=== PATIENT | female | born 1970 | race Caucasian/White ===

== ENCOUNTER → 2016-06-21 | Outpatient (CLI) | payer OTHER ==
[~2016-06-21] MED LIST: /ONDA4TA OR; AMIT10TA2 OR; COMBVENT INH; DEPA250T3 OR; DEPA500T OR; MAXA10TA17 OR; NICO14DI3 TD; PERC5TAB8 OR; PHEN 25 PO; ZITH250T OR
--- NOTE | 2016-06-21 08:37 | REP ---
MRI CERVICAL SPINE WITHOUT CONTRAST: HISTORY: Neck pain. COMPARISON: 03/03/2013. A disc bulge is present at the C2-3 level. There is minimal effacement of the thecal sac without spinal cord compression. The C2 neural foramina are patent. A disc bulge is present at the C3-4 level. There is minimal effacement of the thecal sac without spinal cord compression. The C3 neural foramina are patent. A disc bulge with associated osteophyte formation is present at the C4-5 level. There is minimal effacement of the thecal sac without spinal cord compression. Uncinate process hypertrophy is present on the right. This produces minimal narrowing of the right C4 neural foramen. The left C4 neural foramen is patent. The patient is status post C5-6 anterior spinal fusion. A fixation plate and bone graft material are present. There is no disc bulge or herniation at this level. The C5 neural foramina are patent. A disc bulge is present at the C6-7 level. There is minimal effacement of the thecal sac without spinal cord compression. Bilateral uncinate process hypertrophy is present. This produces minimal narrowing of the C6 neural foramina. There is no other disc bulge or herniation. The remaining neural foramina are patent. The spinal cord is normal in signal intensity. There is no intradural extramedullary lesion. Normal signal intensity is present in the cervical vertebral bodies. There is no subluxation. IMPRESSION: 1. The patient is status post C5-6 anterior spinal fusion. There is anatomic alignment of the cervical spine. 2. There is cervical spondylosis at the C2-3 through C4-5 and C6-7 levels without spinal cord compression. The disc bulge and osteophyte formation at the C4-5 level and foraminal narrowing at the C6-7 level are new findings. Signed by Frank Best MD 06/21/2016 09:11 A
--- NOTE | 2016-06-21 08:41 | REP ---
MRI LUMBAR SPINE WITHOUT CONTRAST: HISTORY: Back pain. COMPARISON: 01/03/2013. Decreased signal intensity on T2-weighted images is present in the L4-5 and L5-S1 intervertebral discs. The discs are decreased in height. These findings are consistent with disc degeneration. There is no disc bulge or herniation at the L1-2 and L2-3 levels. The nerves exit the neural foramina without compression. A diffuse disc bulge is present at the L3-4 level. There is minimal compression of the thecal sac. The L3 nerves exit the neural foramina without compression. A diffuse disc bulge is present at the L4-5 level. There is minimal compression of the thecal sac. The L4 nerves exit the neural foramina without compression. A diffuse disc bulge and small central disc protrusion are present at the L5-S1 level. The disc bulge abuts the S1 nerves. There is no thecal sac compression. The L5 nerves exit the neural foramina without compression. A 4 mm cyst is present lateral to the right L5-S1 facet joint. The conus medullaris is normal in appearance terminating at the level of the T12-L1 intervertebral disc. Normal signal intensity is present in the lumbar vertebral bodies. IMPRESSION: 1. Diffuse disc bulges at the L3-4 and L4-5 levels with minimal thecal sac compression. 2. Diffuse disc bulge and small central disc protrusion at the L5-S1 level. The disc bulge abuts the S1 nerves. There is no change compared to the previous study. Signed by Frank Best MD 06/21/2016 09:10 A
== END ==
LOC: M RAD 06:39
PROVIDERS: ATTEND Physician Assistant Medical
DX: M54.2 Cervicalgia (principal); M54.5 Low back pain; M43.22 Fusion of spine, cervical region; M43.02 Spondylolysis, cervical region

== ENCOUNTER → 2016-06-29 | Outpatient (CLI) | payer OTHER ==
[2016-06-29 10:30] LABS: BASO % 0.8 % (0.0-1.0); EOS # 0.1 K/mm3 (0.0-0.50); EOS % 1.1 % (0.0-3.0); LYMPH # 1.7 K/mm3 (1.5-4.5); LYMPH % 27.8 % (24.0-44.0); MEAN CORPUSCULAR HEMOGLOBIN 32.7 pg (27.0-33.0); MEAN CORPUSCULAR HGB CONC 33.6 g/dl (32.0-36.5); MEAN CORPUSCULAR VOLUME 97.3 fl (80.0-96.0); MONO # 0.3 K/mm3 (0.0-0.8); MONO % 4.2 % (0.0-5.0); NEUTROPHILS # 3.8 K/mm3 (1.8-7.7); NEUTROPHILS % 63.6 % (36.0-66.0); RED CELL DISTRIBUTION WIDTH 12.6 % (11.5-14.5)
[2016-06-29 10:54] LABS: ALBUMIN 4.1 GM/DL (3.2-5.2); ALBUMIN/GLOBULIN RATIO 1.32 (1.00-1.93); ALKALINE PHOSPHATASE 97 U/L (45-117); ALT/SGPT 17 U/L (12-78); ANION GAP 8 MEQ/L (8-16); AST/SGOT 13 U/L (15-37); BILIRUBIN,TOTAL 0.3 MG/DL (0.2-1.0); BLOOD UREA NITROGEN 11 MG/DL (7-18); CALCIUM LEVEL 9.2 MG/DL (8.5-10.1); CARBON DIOXIDE LEVEL 27 MEQ/L (21-32); CHLORIDE LEVEL 106 MEQ/L (98-107); CHOLESTEROL LEVEL 236 MG/DL (<200); CREATININE FOR GFR 0.71 MG/DL (0.55-1.02); GLOMERULAR FILTRATION RATE > 60.0 (>58); GLUCOSE, FASTING 90 MG/DL (70-105); POTASSIUM SERUM 4.3 MEQ/L (3.5-5.1); SODIUM LEVEL 141 MEQ/L (136-145); TOTAL PROTEIN 7.2 GM/DL (6.4-8.2); TRIGLYCERIDES LEVEL 69 MG/DL (<150)
== END ==
LOC: M LAB 09:50
PROVIDERS: ATTEND Physician Assistant Medical
DX: I10 Essential (primary) hypertension (principal)

== ENCOUNTER → 2016-06-29 | Outpatient (CLI) | payer OTHER | LOC: M LAB 09:51 | PROVIDERS: ATTEND Physician Assistant Medical | DX: E55.9 Vitamin D deficiency, unspecified (principal) ==

== ENCOUNTER → 2016-07-26 | Outpatient (CLI) | payer OTHER ==
--- NOTE | 2016-07-26 13:02 | REPMRS ---
Patient History The patient states she had a clinical breast exam in July 2016.Family history of breast cancer in mother and breast cancer in maternal grandmother. Digital Mammo Screening Bilat: July 26, 2016 - Exam #: [id number] Bilateral CC and MLO view(s) were taken. Technologist: Leena Neumann, Technologist Prior study comparison: December 13, 2014, bilateral digital mammo screening bilat performed at [facility]. FINDINGS: There are scattered fibroglandular densities. There has been no change in the appearance of the mammogram from the prior studies. There is a mild amount of scattered fibroglandular density which is fairly symmetric. There is no interval development of dominant mass, architectural distortion, or clustered microcalcification suggestive of malignancy. ASSESSMENT: BI-RADS/ACR category 1 mammogram. Negative. Recommendation Routine screening mammogram in 1 year (for women over age 40). This mammogram was interpreted with the aid of an FDA-approved computer-aided dectection system. Electronically Signed By: Piero Kuhn MD 07/26/16 [id number]
== END ==
LOC: M RAD 08:47
PROVIDERS: ATTEND Advanced Practice Midwife
DX: Z12.31 Encounter for screening mammogram for malignant neoplasm of breast (principal); Z80.3 Family history of malignant neoplasm of breast

== ENCOUNTER → 2016-09-17 | Outpatient (CLI) | payer OTHER ==
[2016-09-17 12:17] LABS: ALBUMIN 3.8 GM/DL (3.2-5.2); ALBUMIN/GLOBULIN RATIO 1.15 (1.00-1.93); ALKALINE PHOSPHATASE 83 U/L (45-117); ALT/SGPT 21 U/L (12-78); ANION GAP 6 MEQ/L (8-16); AST/SGOT 18 U/L (15-37); BILIRUBIN,TOTAL 0.4 MG/DL (0.2-1.0); BLOOD UREA NITROGEN 18 MG/DL (7-18); CALCIUM LEVEL 9.1 MG/DL (8.5-10.1); CARBON DIOXIDE LEVEL 30 MEQ/L (21-32); CHLORIDE LEVEL 106 MEQ/L (98-107); CHOLESTEROL LEVEL 280 MG/DL (<200); CREATININE FOR GFR 0.75 MG/DL (0.55-1.02); GLOMERULAR FILTRATION RATE > 60.0 (>58); GLUCOSE, FASTING 75 MG/DL (70-105); POTASSIUM SERUM 4.3 MEQ/L (3.5-5.1); SODIUM LEVEL 142 MEQ/L (136-145); TOTAL PROTEIN 7.1 GM/DL (6.4-8.2); TRIGLYCERIDES LEVEL 144 MG/DL (<150)
== END ==
LOC: M LAB 10:12
PROVIDERS: ATTEND Physician Assistant Medical
DX: E78.2 Mixed hyperlipidemia (principal); E55.9 Vitamin D deficiency, unspecified

== ENCOUNTER → 2016-09-17 | Outpatient (CLI) | payer OTHER ==
--- NOTE | 2016-09-18 01:33 | REP ---
Clinical: Cervical spondylosis. Technique: AP, lateral, flexion/extension, open-mouth, bilateral oblique views of the cervical spine. Findings: Anterior fixation at the C5-6 level again noted. Mild/early moderate degenerative disc osteophyte complex at the C3-4, C4-5, C6-7 levels includes anterior spurring, endplate sclerosis and disc space narrowing. Flexion view suggests 2 mm of retrolisthesis at the C4-5 level. Spinous processes are intact. Open mouth view demonstrates normal C1-C2 articulation and odontoid process. Prevertebral soft tissues normal. Oblique views demonstrate patent neural foramen. Impression: Degenerative changes as noted above. 2 mm retrolisthesis at the C4-5 level on flexion view suggested. Signed by Pavan Page MD 09/18/2016 01:24 A
--- NOTE | 2016-09-18 01:45 | REP ---
Clinical: Spondylosis. Technique: AP, lateral, flexion/extension, bilateral oblique, and coned-down views of the lumbosacral spine. Comparison: 12/10/2006. Findings: Alignment and lordosis maintained. No acute fracture / compression injury or subluxation. No evidence for spondylolysis or spondylolisthesis. Stable degenerative disc disease at the L5-S1 level includes endplate sclerosis, very subtle anterior spurring and mild hypertrophic facet changes. Impression: Stable early moderate degenerative changes at the L5-S1 level. Signed by Pavan Page MD 09/18/2016 01:36 A
== END ==
LOC: M RAD 10:17
PROVIDERS: ATTEND Neurological Surgery
DX: M47.892 Other spondylosis, cervical region (principal); M47.896 Other spondylosis, lumbar region

== ENCOUNTER → 2016-12-04 | Outpatient (CLI) | payer OTHER ==
[2016-12-04 11:40] LABS: CHOLESTEROL LEVEL 226 MG/DL (<200); TOTAL PROTEIN 6.9 GM/DL (6.4-8.2); TRIGLYCERIDES LEVEL 93 MG/DL (<150)
[2016-12-05 11:07] LABS: ALBUMIN 4.15 GM/DL (3.29-5.55); ALBUMIN % 60.2 % (55.8-66.1); GAMMA GLOBULIN % 11.8 % (11.1-18.8)
[2016-12-06 00:07] LABS: Lyme Disease IgG/IgM Antibodie <0.91 ISR (0.00-0.90); Lyme Disease IgM Ab Quantitati <0.80 index (0.00-0.79); SJOGREN'S ANTI SS-A <0.2 AI (0.0-0.9); SJOGREN'S ANTI SS-B <0.2 AI (0.0-0.9)
== END ==
LOC: M LAB 10:19
PROVIDERS: ATTEND Physician Assistant Medical
DX: E78.2 Mixed hyperlipidemia (principal); E55.9 Vitamin D deficiency, unspecified; M54.5 Low back pain

== ENCOUNTER → 2017-03-28 | Outpatient (CLI) | payer OTHER ==
[2017-03-28 08:34] LABS: BASO # 0.1 10^3/uL (0.0-0.2); BASO % 0.8 % (0.0-1.0); EOS # 0.1 10^3/uL (0.0-0.50); EOS % 1.6 % (0.0-3.0); IMMATURE GRANULOCYTE % 0.5 % (0-0); LYMPH # 2.1 10^3/uL (1.5-4.5); LYMPH % 32.9 % (24.0-44.0); MEAN CORPUSCULAR HEMOGLOBIN 32.1 pg (27.0-33.0); MEAN CORPUSCULAR HGB CONC 33.1 g/dl (32.0-36.5); MEAN CORPUSCULAR VOLUME 96.9 fl (80.0-96.0); MONO # 0.3 10^3/uL (0.0-0.8); NEUTROPHILS # 3.7 10^3/uL (1.8-7.7); NEUTROPHILS % 59.2 % (36.0-66.0); PLATELET COUNT, AUTOMATED 304 10^3/uL (150-450); RED CELL DISTRIBUTION WIDTH 12.8 % (11.5-14.5); WHITE BLOOD COUNT 6.2 10^3/uL (4.0-10.0)
[2017-03-28 08:54] LABS: INR 0.87
[2017-03-28 09:12] LABS: ALBUMIN 3.8 GM/DL (3.2-5.2); ALBUMIN/GLOBULIN RATIO 1.15 (1.00-1.93); ALKALINE PHOSPHATASE 79 U/L (45-117); ALT/SGPT 32 U/L (12-78); ANION GAP 3 MEQ/L (8-16); AST/SGOT 20 U/L (7-37); BILIRUBIN,TOTAL 0.3 MG/DL (0.2-1.0); BLOOD UREA NITROGEN 23 MG/DL (7-18); CALCIUM LEVEL 9.3 MG/DL (8.5-10.1); CARBON DIOXIDE LEVEL 30 MEQ/L (21-32); CHLORIDE LEVEL 109 MEQ/L (98-107); CHOLESTEROL LEVEL 321 MG/DL (<200); CREATININE FOR GFR 0.71 MG/DL (0.55-1.02); FERRITIN 136 NG/ML (8-252); GLOMERULAR FILTRATION RATE > 60.0 (>58); GLUCOSE, FASTING 86 MG/DL (70-105); POTASSIUM SERUM 4.4 MEQ/L (3.5-5.1); SODIUM LEVEL 142 MEQ/L (136-145); TOTAL PROTEIN 7.1 GM/DL (6.4-8.2); TRIGLYCERIDES LEVEL 98 MG/DL (<150)
== END ==
LOC: M LAB 07:54
PROVIDERS: ATTEND Physician Assistant Medical
DX: R70.0 Elevated erythrocyte sedimentation rate (principal)

== ENCOUNTER → 2017-04-16 | Outpatient (CLI) | payer OTHER ==
--- NOTE | 2017-04-17 08:25 | REP ---
LIMITED EXTREMITY ULTRASOUND: CLINICAL: Palpable mass, evaluate for neuroma. TECHNIQUE: Real-time holt scale and color evaluation using linear high frequency transducer. FINDINGS: Directed ultrasound examination of the left foot between the first and second as well as the second and third toes demonstrates normal subcutaneous tissues and musculature. No obvious fluid collection or mass lesion is identified. IMPRESSION: Limited examination without evidence for abnormal fluid collection or mass lesion. Signed by Pavan Page MD 04/21/2017 11:22 P
== END ==
LOC: M RAD 13:01
PROVIDERS: ATTEND Podiatrist Foot & Ankle Surgery
DX: G57.60 Lesion of plantar nerve, unspecified lower limb (principal)

== ENCOUNTER → 2017-04-22 | Outpatient (CLI) | payer OTHER ==
[~2017-04-22] MED LIST changes: +PROHANCE 279.3MG/ML 15ML VIAL (A9576) As Ordered ONE
--- NOTE | 2017-04-22 16:44 | REP ---
MRI LEFT FOOT WITH AND WITHOUT CONTRAST: TECHNIQUE: Multiple sequences obtained in the axial, coronal and saggital planes prior to and following the intravenous administration of 11 mL of ProHance. The visualized osseous structures demonstrate normal marrow signal. There is no bone marrow edema or occult fracture. There is ill-defined high signal in the soft-tissues between the distal 2nd and 3rd metatarsals. No cystic or solid nodule is seen. There is no enhancing nodule that would suggest the presence of a Lucas neuroma. The ill-defied edema appears to be associated with distal lumbrical muscles and tendons in the interspace between the 2nd and 3rd metatarsals distally, most suggestive of tendonitis or partial muscle/tendon tear. No other significant abnormal signal is seen in the soft tissues of the left foot. No ganglion cyst of fluid collection is seen. IMPRESSION: Mild edema in the region of the lumbrical muscles between the distal aspects of second and third metatarsals, most consistent with tendonitis or partial tear. No MR evidence for Lucas neuroma, with no evidence of an enhancing soft-tissue nodule in this region. Signed by Norman Chakraborty MD 04/24/2017 08:59 A
== END ==
LOC: M RAD 13:05
PROVIDERS: ATTEND Podiatrist Foot & Ankle Surgery
DX: G57.62 Lesion of plantar nerve, left lower limb (principal)
CPT/HCPCS: 73720; A9576

== ENCOUNTER → 2017-05-29 | Outpatient (CLI) | payer OTHER ==
[2017-05-29 07:45] LABS: HEMATOCRIT 39.6 % (36.0-47.0); HEMOGLOBIN 13.4 g/dl (12.0-16.0); MEAN CORPUSCULAR HEMOGLOBIN 32.3 pg (27.0-33.0); MEAN CORPUSCULAR HGB CONC 33.8 g/dl (32.0-36.5); MEAN CORPUSCULAR VOLUME 95.4 fl (80.0-96.0); PLATELET COUNT, AUTOMATED 301 10^3/uL (150-450); RED BLOOD COUNT 4.15 10^6/uL (4.00-5.40); RED CELL DISTRIBUTION WIDTH 12.2 % (11.5-14.5); WHITE BLOOD COUNT 8.7 10^3/uL (4.0-10.0)
[2017-05-29 08:21] LABS: ANION GAP 4 MEQ/L (8-16); BLOOD UREA NITROGEN 30 MG/DL (7-18); CARBON DIOXIDE LEVEL 27 MEQ/L (21-32); CHLORIDE LEVEL 112 MEQ/L (98-107); CREATININE FOR GFR 0.69 MG/DL (0.55-1.02); GLOMERULAR FILTRATION RATE > 60.0 (>58); GLUCOSE, FASTING 92 MG/DL (70-105); POTASSIUM SERUM 4.4 MEQ/L (3.5-5.1); SODIUM LEVEL 143 MEQ/L (136-145)
== END ==
LOC: M LAB 07:00
DX: Z01.812 Encounter for preprocedural laboratory examination (principal)
CPT/HCPCS: 36415

== ENCOUNTER → 2017-05-29 | Outpatient (CLI) | payer OTHER ==
[2017-05-29 07:46] LABS: BASO % 0.4 % (0.0-1.0); EOS # 0.1 10^3/uL (0.0-0.50); HEMATOCRIT 40.4 % (36.0-47.0); HEMOGLOBIN 13.4 g/dl (12.0-16.0); IMMATURE GRANULOCYTE % 0.4 % (0-0); LYMPH % 24.5 % (24.0-44.0); MEAN CORPUSCULAR HEMOGLOBIN 32.1 pg (27.0-33.0); MEAN CORPUSCULAR HGB CONC 33.2 g/dl (32.0-36.5); MEAN CORPUSCULAR VOLUME 96.7 fl (80.0-96.0); MONO # 0.4 10^3/uL (0.0-0.8); MONO % 4.8 % (0.0-5.0); NEUTROPHILS # 5.7 10^3/uL (1.8-7.7); NEUTROPHILS % 68.9 % (36.0-66.0); PLATELET COUNT, AUTOMATED 296 10^3/uL (150-450); RED BLOOD COUNT 4.18 10^6/uL (4.00-5.40); RED CELL DISTRIBUTION WIDTH 12.1 % (11.5-14.5); WHITE BLOOD COUNT 8.3 10^3/uL (4.0-10.0)
[2017-05-29 08:22] LABS: RHEUMATOID FACTOR QUANT < 10.0 IU/ML (0-15.0)
[2017-05-29 08:38] LABS: ERYTHROCYTE SEDIMENTATION RATE 21 mm/hr (0-20)
[2017-05-29 08:49] LABS: VITAMIN B12 LEVEL 536 PG/ML
[2017-05-29 08:50] LABS: FOLATE 6.9 NG/ML
[2017-05-30 14:11] LABS: ANTINUCLEAR ANTIBODIES DIRECT Negative (Negative)
[2017-06-05 10:55] LABS: DRVV SCREEN 40.1 SEC
== END ==
LOC: M LAB 07:06
DX: R51 Headache (principal); M54.2 Cervicalgia; M54.5 Low back pain; R20.9 Unspecified disturbances of skin sensation
CPT/HCPCS: 82746

== ENCOUNTER → 2017-05-29 | Outpatient (CLI) | payer OTHER ==
[2017-05-29 08:44] LABS: ALBUMIN 3.8 GM/DL (3.2-5.2); ALBUMIN/GLOBULIN RATIO 1.15 (1.00-1.93); ALKALINE PHOSPHATASE 94 U/L (45-117); ALT/SGPT 29 U/L (12-78); ANION GAP 5 MEQ/L (8-16); AST/SGOT 19 U/L (7-37); BILIRUBIN,TOTAL 0.2 MG/DL (0.2-1.0); BLOOD UREA NITROGEN 30 MG/DL (7-18); CALCIUM LEVEL 8.9 MG/DL (8.5-10.1); CARBON DIOXIDE LEVEL 27 MEQ/L (21-32); CHLORIDE LEVEL 111 MEQ/L (98-107); CHOLESTEROL LEVEL 289 MG/DL (<200); CHOLESTEROL RISK RATIO 4.378 (<5); CREATININE FOR GFR 0.75 MG/DL (0.55-1.02); GLOMERULAR FILTRATION RATE > 60.0 (>58); GLUCOSE, FASTING 94 MG/DL (70-105); HDL CHOLESTEROL 66 MG/DL (>40); LDL CHOLESTEROL 204.6 MG/DL (<100); NON-HDL-C 223 MG/DL; POTASSIUM SERUM 4.4 MEQ/L (3.5-5.1); SODIUM LEVEL 143 MEQ/L (136-145); TOTAL PROTEIN 7.1 GM/DL (6.4-8.2); TRIGLYCERIDES LEVEL 92 MG/DL (<150)
== END ==
LOC: M LAB 07:03
DX: E78.2 Mixed hyperlipidemia (principal)
CPT/HCPCS: 80053

== ENCOUNTER 2017-06-19 07:27 | Day surgery (SDC) | payer OTHER ==
[2017-06-19] MEDS: LR 1,000 ML IV (07:45)
[2017-06-19] MEDS ORDERED: MIDAZOLAM INJ 2 MG/2 ML VIAL (J2250) As Ordered (08:09)
[2017-06-19] MEDS ORDERED: fentaNYL 100 MCG/2 ML INJECTION (J3010) As Ordered (08:10)
[2017-06-19] MEDS ORDERED: dexameTHASONE 4 MG/ML 1ML VIAL (J1100) As Ordered ×2 (08:20→08:52)
[2017-06-19] MEDS ORDERED: LIDOCAINE 1% MDV 20ML VIAL As Ordered (08:31)
[2017-06-19] MEDS: LIDOCAINE 2% MDV 20 ML VIAL As Ordered (08:42)
[2017-06-19] MEDS: BUPIVACAINE HCL 0.5% 10 ML VIAL As Ordered (08:42)
[2017-06-19] MEDS ORDERED: PROPOFOL 200 MG/20 ML VIAL As Ordered (08:51)
[2017-06-19] MEDS ORDERED: LIDOCAINE 2% INJ 100 MG/5 ML SDV (FOR ANES.) As Ordered (08:51)
[2017-06-19] MEDS ORDERED: ONDANSETRON 4MG/2ML VIAL (J2405) As Ordered ×2 (08:52→09:25)
[2017-06-19] MEDS ORDERED: KETOROLAC 60 MG/2 ML VIAL (J1885) As Ordered (08:52)
[2017-06-19] MEDS: ONDANSETRON 4MG/2ML VIAL (J2405) IV (09:30)
[2017-06-19] MEDS ORDERED: fentaNYL 100 MCG/2 ML INJECTION (J3010) IV (09:45)
[2017-06-19] MEDS ORDERED: NORCO, ANEXSIA 5/325MG TABLET (HYDROcodone/ACETAMINOPHEN) PO (09:45)
[2017-06-19] MEDS ORDERED: LR 1,000 ML IV (09:45)
[2017-06-19] MEDS: METOCLOPRAMIDE INJ 10MG/2ML VIAL (J2765) IV (09:50)
== END 2017-06-19 11:00 | disposition home or self-care (01) ==
LOC: M SDC 07:27
DX: G57.62 Lesion of plantar nerve, left lower limb (principal); I10 Essential (primary) hypertension; E78.00 Pure hypercholesterolemia, unspecified; K21.9 Gastro-esophageal reflux disease without esophagitis; M54.2 Cervicalgia; M79.7 Fibromyalgia; M21.612 Bunion of left foot; F41.9 Anxiety disorder, unspecified; F32.9 Major depressive disorder, single episode, unspecified; G43.909 Migraine, unspecified, not intractable, without status migrainosus; J30.9 Allergic rhinitis, unspecified; Z88.5 Allergy status to narcotic agent; Z88.6 Allergy status to analgesic agent; Z79.899 Other long term (current) drug therapy; Z72.0 Tobacco use; Z90.710 Acquired absence of both cervix and uterus; Z86.73 Personal history of transient ischemic attack (TIA), and cerebral infarction without residual deficits; Z98.1 Arthrodesis status
CPT/HCPCS: 28080

== ENCOUNTER 2017-08-28 20:29 | Emergency (ER) | payer MEDICARE, MEDICAID ==
[2017-08-28] MEDS: DOXYCYCLINE HYCLATE 100 MG TAB PO (22:45)
[2017-08-28] MEDS: predniSONE 20 MG TAB PO (22:45)
[2017-08-28] MEDS ORDERED: ALBUTEROL SULFATE 2.5 MG/0.5 ML INH NEB SOLN INH (22:45)
== END 2017-08-28 23:34 | disposition home or self-care (01) ==
LOC: M ED 20:29
DX: J20.9 Acute bronchitis, unspecified (principal); I10 Essential (primary) hypertension; E78.5 Hyperlipidemia, unspecified; F17.210 Nicotine dependence, cigarettes, uncomplicated; Z88.5 Allergy status to narcotic agent; Z88.6 Allergy status to analgesic agent; Z79.899 Other long term (current) drug therapy
CPT/HCPCS: 71046

== ENCOUNTER → 2017-10-15 | Outpatient (CLI) | payer MEDICARE, MEDICAID ==
[2017-10-15 07:18] LABS: BASO # 0.1 10^3/uL (0.0-0.2); BASO % 0.6 % (0.0-1.0); EOS # 0.1 10^3/uL (0.0-0.50); EOS % 1.6 % (0.0-3.0); HEMATOCRIT 38.9 % (36.0-47.0); HEMOGLOBIN 13.2 g/dl (12.0-15.5); IMMATURE GRANULOCYTE % 0.3 % (0-3.0); LYMPH # 2.7 10^3/uL (1.5-4.5); LYMPH % 30.4 % (24.0-44.0); MEAN CORPUSCULAR HEMOGLOBIN 32.4 pg (27.0-33.0); MEAN CORPUSCULAR HGB CONC 33.9 g/dl (32.0-36.5); MEAN CORPUSCULAR VOLUME 95.6 fl (80.0-96.0); MONO # 0.5 10^3/uL (0.0-0.8); MONO % 5.5 % (0.0-5.0); NEUTROPHILS # 5.5 10^3/uL (1.8-7.7); NEUTROPHILS % 61.6 % (36.0-66.0); PLATELET COUNT, AUTOMATED 307 10^3/uL (150-450); RED BLOOD COUNT 4.07 10^6/uL (4.00-5.40); RED CELL DISTRIBUTION WIDTH 13.1 % (11.5-14.5); WHITE BLOOD COUNT 8.9 10^3/uL (4.0-10.0)
[2017-10-15 07:46] LABS: ERYTHROCYTE SEDIMENTATION RATE 18 mm/hr (0-20)
[2017-10-15 07:48] LABS: ALBUMIN 3.4 GM/DL (3.2-5.2); ALKALINE PHOSPHATASE 106 U/L (45-117); ALT/SGPT 21 U/L (12-78); ANION GAP 6 MEQ/L (8-16); AST/SGOT 17 U/L (7-37); BILIRUBIN,TOTAL 0.2 MG/DL (0.2-1.0); BLOOD UREA NITROGEN 12 MG/DL (7-18); C REACTIVE PROTEIN QUANTITATIV < 0.30 MG/DL (0.00-0.30); CALCIUM LEVEL 8.6 MG/DL (8.5-10.1); CARBON DIOXIDE LEVEL 27 MEQ/L (21-32); CHLORIDE LEVEL 112 MEQ/L (98-107); COMPLEMENT C3 129 MG/DL (90-180); COMPLEMENT C4 30.7 MG/DL (10-40); CREATININE FOR GFR 0.81 MG/DL (0.55-1.30); GLOMERULAR FILTRATION RATE > 60.0 (>58); GLUCOSE, FASTING 95 MG/DL (70-100); POTASSIUM SERUM 3.9 MEQ/L (3.5-5.1); SODIUM LEVEL 145 MEQ/L (136-145); TOTAL PROTEIN 6.5 GM/DL (6.4-8.2)
[2017-10-18 00:07] LABS: QUANTIFERON GOLD TB Negative (Negative); TB Test (QFT) Antigen 0.37 IU/mL (.); TB Test (QFT) Antigen Minus Ni 0.32 IU/mL (.); TB Test (QFT) Mitogen 6.68 IU/mL (.); TB Test (QFT) Nil 0.05 IU/mL (.)
[2017-10-21 14:12] LABS: ANCA-ATYPICAL <1:20 titer (Neg:<1:20); ANGIOTENSIN 1 CONVERTING ENZYM 26 U/L (14-82); ANTI DOUBLE STRAND-DNA AB <1 IU/mL (0-9); ANTI-SMOOTH MUSCLE ANTIBODY 8 Units (0-19); CYCLIC CITRULLINATED PEPTIDE 5 units (0-19); CYTOPLASMIC NEUTROP AB ANCA-C <1:20 titer (Neg:<1:20); HLA-B27 Negative (.); PERINUCLEAR AB ANCA-P <1:20 titer (Neg:<1:20); RNP ANTIBODY < 0.2 AI (0.0-0.9); SMITHS ANTIBODY < 0.2 AI (0.0-0.9); SSA SJOGRENS A <0.2 AI (0.0-0.9); SSB SJOGRENS B <0.2 AI (0.0-0.9)
== END ==
LOC: M LAB 06:34
DX: M25.50 Pain in unspecified joint (principal)
CPT/HCPCS: 71046

== ENCOUNTER → 2017-10-28 | Outpatient (CLI) | payer MEDICARE, MEDICAID | LOC: M CARPUL 12:11 | DX: M25.50 Pain in unspecified joint (principal) | CPT/HCPCS: 94060 ==

== ENCOUNTER → 2018-02-23 | Outpatient (CLI) | payer MEDICARE, MEDICAID | LOC: M LAB 15:38 | DX: M99.81 Other biomechanical lesions of cervical region (principal) | CPT/HCPCS: 72040 ==

== ENCOUNTER → 2018-04-27 | Outpatient (CLI) | payer MEDICARE, MEDICAID ==
[~2018-04-27] MED LIST changes: +AMLO10TA4; +ATOR40TA75; +BUSP15TA47; +CYMB60CA3 PO; +DOXY100T16 PO; +EZET10TA PO; +GABA600T; +HYDR-3713; +HYDR-3713 PO; +IBUP-1022; +LISI-538; +NICODIS2 TD; +PRAM0.5T7 PO; +PRED20TA PO; -PROHANCE 279.3MG/ML 15ML VIAL (A9576) As Ordered ONE; +ROPI2TAB; +SERT-138; +SUMA6INJ16; +TIZA2TA; +VITA50005; +ZOCO40TA PO
--- NOTE | 2018-04-27 12:31 | REP ---
REASON: Status post fusion. COMPARISON: 02/23/2018. AP and lateral views were obtained as on the prior exam. Postoperative change is seen C4-C6 inclusive status quo. No change in the appearance of the cervical spine on this limited two-view exam. IMPRESSION: No change. Electronically Signed by Robin Walters DO 04/27/2018 12:26 P
== END ==
LOC: M RAD 10:44
PROVIDERS: ATTEND Neurological Surgery
DX: M47.22 Other spondylosis with radiculopathy, cervical region (principal)

== ENCOUNTER → 2018-04-27 | Outpatient (CLI) | payer MEDICARE, MEDICAID ==
[2018-04-27 11:33] LABS: BASO # 0.1 10^3/uL (0.0-0.2); BASO % 0.8 % (0.0-1.0); EOS # 0.1 10^3/uL (0.0-0.50); EOS % 0.8 % (0.0-3.0); HEMATOCRIT 47.1 % (36.0-47.0); HEMOGLOBIN 15.8 g/dl (12.0-15.5); LYMPH # 2.1 10^3/uL (1.5-4.5); MEAN CORPUSCULAR HEMOGLOBIN 31.5 pg (27.0-33.0); MEAN CORPUSCULAR HGB CONC 33.5 g/dl (32.0-36.5); MONO # 0.3 10^3/uL (0.0-0.8); NEUTROPHILS # 5.1 10^3/uL (1.8-7.7); NEUTROPHILS % 67.1 % (36.0-66.0); PLATELET COUNT, AUTOMATED 278 10^3/uL (150-450); RED BLOOD COUNT 5.01 10^6/uL (4.00-5.40); WHITE BLOOD COUNT 7.7 10^3/uL (4.0-10.0)
[2018-04-27 12:00] LABS: ALBUMIN 4.3 GM/DL (3.2-5.2); ALT/SGPT 25 U/L (12-78); BILIRUBIN,TOTAL 0.3 MG/DL (0.2-1.0); BLOOD UREA NITROGEN 9 MG/DL (7-18); C REACTIVE PROTEIN QUANTITATIV < 0.30 MG/DL (0.00-0.30); CALCIUM LEVEL 9.4 MG/DL (8.5-10.1); CARBON DIOXIDE LEVEL 27 MEQ/L (21-32); CHLORIDE LEVEL 106 MEQ/L (98-107); CREATININE FOR GFR 0.83 MG/DL (0.55-1.30); GLOMERULAR FILTRATION RATE > 60.0 (>58); GLUCOSE, FASTING 96 MG/DL (70-100); POTASSIUM SERUM 4.5 MEQ/L (3.5-5.1); RHEUMATOID FACTOR QUANT < 10.0 IU/ML (<15.0); SODIUM LEVEL 140 MEQ/L (136-145); TOTAL PROTEIN 7.9 GM/DL (6.4-8.2)
[2018-04-27 12:31] LABS: ERYTHROCYTE SEDIMENTATION RATE 4 mm/hr (0-20)
[2018-04-28 11:13] LABS: HEPATITIS B SURFACE ANTIGEN NEGATIVE (NEGATIVE)
[2018-04-28 11:41] LABS: HEPATITIS C VIRUS ABY INDEX 0.1 INDEX (<0.8)
[2018-04-30 14:14] LABS: ANTI DOUBLE STRAND-DNA AB <1 IU/mL (0-9); ANTINUCLEAR ANTIBODIES DIRECT Negative (Negative); CYCLIC CITRULLINATED PEPTIDE 8 units (0-19); HEPATITIS B CORE ANTIBODY IGG Negative (Negative); RNP ANTIBODIES <0.2 AI (0.0-0.9); SJOGREN'S ANTI SS-A <0.2 AI (0.0-0.9); SJOGREN'S ANTI SS-B <0.2 AI (0.0-0.9); SMITH ANTIBODIES <0.2 AI (0.0-0.9)
== END ==
LOC: M LAB 10:41
PROVIDERS: ATTEND Internal Medicine
DX: M35.01 Sjogren syndrome with keratoconjunctivitis (principal)

== ENCOUNTER 2018-04-28 13:24 | Emergency (ER) | payer MEDICARE, MEDICAID ==
[~2018-04-28] VITALS: Ht 154.9 cm; Wt 62.3 kg
--- NOTE | 2018-04-28 13:54 | REP ---
Chest one-view HISTORY: Chest pain Comparison: 10/15/2017 The lungs are clear. The heart is normal in size. The pulmonary vasculature is normal in appearance. Impression: No acute disease. Electronically Signed by Frank Best MD 04/28/2018 01:45 P
[2018-04-28 14:02] LABS: BASO % 0.4 % (0.0-1.0); EOS % 0.3 % (0.0-3.0); HEMATOCRIT 42.6 % (36.0-47.0); HEMOGLOBIN 14.6 g/dl (12.0-15.5); LYMPH # 2.1 10^3/uL (1.5-4.5); LYMPH % 23.2 % (24.0-44.0); MEAN CORPUSCULAR HEMOGLOBIN 31.5 pg (27.0-33.0); MEAN CORPUSCULAR HGB CONC 34.3 g/dl (32.0-36.5); MONO # 0.3 10^3/uL (0.0-0.8); MONO % 3.7 % (0.0-5.0); NEUTROPHILS # 6.5 10^3/uL (1.8-7.7); PLATELET COUNT, AUTOMATED 298 10^3/uL (150-450); RED BLOOD COUNT 4.63 10^6/uL (4.00-5.40); WHITE BLOOD COUNT 9.1 10^3/uL (4.0-10.0)
[2018-04-28 14:12] LABS: INR 0.93; PARTIAL THROMBOPLASTIN TIME 25.7 SECONDS (25.4-37.6); PROTHROMBIN TIME 12.6 SECONDS (12.1-14.4)
[2018-04-28] MEDS: LISINOPRIL 20 MG TAB PO ONE (14:18)
[2018-04-28 14:29] VITALS: BP 161/101
[2018-04-28] MEDS: amLODIPine 10 MG TAB PO ONE (14:29)
[2018-04-28 14:37] LABS: ALBUMIN 4.2 GM/DL (3.2-5.2); ALT/SGPT 23 U/L (12-78); BILIRUBIN,DIRECT < 0.1 MG/DL (0.0-0.2); BILIRUBIN,TOTAL 0.4 MG/DL (0.2-1.0); BLOOD UREA NITROGEN 18 MG/DL (7-18); CALCIUM LEVEL 9.3 MG/DL (8.5-10.1); CARBON DIOXIDE LEVEL 25 MEQ/L (21-32); CHLORIDE LEVEL 105 MEQ/L (98-107); CK-MB VALUE MASS < 1.0 NG/ML (<3.6); CPK CREATINE PHOSPHOKINASE 100 U/L (26-192); CREATININE FOR GFR 0.94 MG/DL (0.55-1.30); GLOMERULAR FILTRATION RATE > 60.0 (>58); GLUCOSE, FASTING 89 MG/DL (70-100); LIPASE 152 U/L (73-393); POTASSIUM SERUM 3.7 MEQ/L (3.5-5.1); SODIUM LEVEL 138 MEQ/L (136-145); TOTAL PROTEIN 7.7 GM/DL (6.4-8.2); TROPONIN I < 0.02 NG/ML (< 0.10); VALPROIC ACID (DEPAKOTE) 7.4 UG/ML (50.0-100.0)
[2018-04-28] MEDS: METOCLOPRAMIDE INJ 10MG/2ML VIAL (J2765) IV ONE (14:45)
--- NOTE | 2018-04-28 14:59 | REP ---
CT Head without contrast HISTORY: Headache COMPARISON: None There is no intraparenchymal hemorrhage, acute infarct, mass or midline shift. The ventricular system is normal in appearance. There is no extra cerebral collection. There is no fracture. The visualized sinuses are clear. IMPRESSION: There is no intracranial lesion. Electronically Signed by Frank Best MD 04/28/2018 02:51 P
--- NOTE | 2018-04-28 19:09 | ECGEPIP ---
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
[2018-04-28 20:45] LABS: CK-MB VALUE MASS < 1.0 NG/ML (<3.6); CPK CREATINE PHOSPHOKINASE 86 U/L (26-192); MB/CK RELATIVE INDEX 1.16 (< OR =4); TROPONIN I < 0.02 NG/ML (< 0.10)
[2018-04-28 21:30] VITALS: BP 112/65
--- NOTE | 2018-04-29 05:48 | ECGEPIP ---
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
== END 2018-04-28 21:32 | disposition home or self-care (01) ==
LOC: M ED 13:24
DX: I10 Essential (primary) hypertension (principal); J44.9 Chronic obstructive pulmonary disease, unspecified; J45.909 Unspecified asthma, uncomplicated; E07.9 Disorder of thyroid, unspecified; M79.7 Fibromyalgia; F33.9 Major depressive disorder, recurrent, unspecified; F41.9 Anxiety disorder, unspecified; Z79.899 Other long term (current) drug therapy; Z88.5 Allergy status to narcotic agent; Z88.8 Allergy status to other drugs, medicaments and biological substances; F17.210 Nicotine dependence, cigarettes, uncomplicated
CPT/HCPCS: 70450; 71045; 80048; 80076; 80164; 82550; 82553; 83690; 84443; 84484; 85025; 85610; 85730; 93005; 93041; 94760; 96374; 99285; J2765

== ENCOUNTER → 2018-05-09 | Outpatient (CLI) | payer MEDICARE, MEDICAID ==
[~2018-05-09] MED LIST changes: -AMLO10TA4; +AMLO10TA5; -GABA600T; +GABA600T4
--- NOTE | 2018-05-09 16:35 | REP ---
Soft-tissue head and neck ultrasound: History: Sj gren's syndrome with keratoconjunctivitis sicca. Findings: Bilateral submandibular scanning is performed. No submandibular cysts are seen. There are normal appearing lymph nodes adjacent to the submandibular glands. The largest lymph node on the right measures 0.4 cm in greatest diameter. The largest left submandibular lymph node measures 1.1 cm in greatest diameter. The parotid glands are scanned bilaterally as well and there are multiple cysts in the right and left parotid gland. The largest cyst on the right measures 0.4 cm. On the left, there is a cyst measuring 0.6 and another measuring 1.3 cm in greatest diameter. Multiple smaller cysts are seen. Similar findings in the parotids are noted on MRI study from May 16, 2017. Impression: Bilateral small parotid cysts consistent with Sj gren's syndrome. No cyst or mass seen in either submandibular gland. Electronically Signed by Blake Kuhn MD 05/09/2018 05:04 P
== END ==
LOC: M RAD 13:02
PROVIDERS: ATTEND Internal Medicine
DX: K11.6 Mucocele of salivary gland (principal); M35.01 Sjogren syndrome with keratoconjunctivitis

== ENCOUNTER → 2018-08-21 | Outpatient (CLI) | payer MEDICAID, MEDICARE ==
[~2018-08-21] MED LIST changes: -/ONDA4TA OR; +ONDA-1 OR
--- NOTE | 2018-08-21 18:25 | REP ---
Cervical spine series: Two views. Lateral flexion extension. History: Cervical spondylosis. Comparison study April 27, 2018. Findings: The patient is status post ventral discectomy and fusion plating at C5-6 and ventral discectomy and fusion hardware is noted at C6-7 as well. Alignment is unchanged. Hardware position is unchanged. Flexion/extension lateral views show no subluxation or instability. There is discogenic spurring anteriorly at C3-4 and C4-5. Electronically Signed by Blake Kuhn MD 08/21/2018 06:57 P
== END ==
LOC: M RAD 10:56
PROVIDERS: ATTEND Neurological Surgery
DX: M47.22 Other spondylosis with radiculopathy, cervical region (principal); Z98.1 Arthrodesis status

== ENCOUNTER → 2018-10-20 | Outpatient (CLI) | payer MEDICARE, MEDICAID ==
[~2018-10-20] MED LIST changes: -EZET10TA PO; +EZET10TA21 PO
[2018-10-20 07:37] LABS: ALBUMIN 3.5 GM/DL (3.2-5.2); ALT/SGPT 27 U/L (12-78); BILIRUBIN,TOTAL 0.4 MG/DL (0.2-1.0); BLOOD UREA NITROGEN 15 MG/DL (7-18); CALCIUM LEVEL 8.5 MG/DL (8.5-10.1); CARBON DIOXIDE LEVEL 27 MEQ/L (21-32); CHLORIDE LEVEL 109 MEQ/L (98-107); CREATININE FOR GFR 0.76 MG/DL (0.55-1.30); GLOMERULAR FILTRATION RATE > 60.0 (>58); GLUCOSE, FASTING 90 MG/DL (70-100); POTASSIUM SERUM 3.9 MEQ/L (3.5-5.1); SODIUM LEVEL 144 MEQ/L (136-145); TOTAL PROTEIN 6.9 GM/DL (6.4-8.2)
[2018-10-20 10:42] LABS: TOTAL 25(OH) VITAMIN D 21.6 NG/ML (30.0-100.0)
== END ==
LOC: M LAB 06:33
PROVIDERS: ATTEND Physician Assistant Medical
DX: R51 Headache (principal); E55.9 Vitamin D deficiency, unspecified

== ENCOUNTER 2019-04-10 20:39 | Emergency (ER) | payer MEDICARE, MEDICAID ==
[~2019-04-10] VITALS: Ht 157.5 cm; Wt 65.9 kg
[~2019-04-10 20:39] MED LIST changes: -DOXY100T16 PO; +DOXY100T27 PO
[2019-04-10] MEDS ORDERED: POTA1TAB21 (21:18)
[2019-04-10] MEDS ORDERED: FURO40TA2 (21:18)
[2019-04-10 22:15] LABS: BASO # 0.1 10^3/uL (0.0-0.2); BASO % 0.8 % (0.0-1.0); EOS # 0.2 10^3/uL (0.0-0.5); EOS % 1.9 % (0.0-3.0); HEMOGLOBIN 14.4 g/dl (12.0-15.5); LYMPH # 2.9 10^3/uL (1.5-5.0); LYMPH % 30.8 % (24.0-44.0); MEAN CORPUSCULAR HEMOGLOBIN 32.9 pg (27.0-33.0); MEAN CORPUSCULAR HGB CONC 32.7 g/dl (32.0-36.5); MEAN CORPUSCULAR VOLUME 100.5 fl (80.0-96.0); MONO # 0.5 10^3/uL (0.0-0.8); MONO % 5.3 % (0.0-5.0); NEUTROPHILS # 5.7 10^3/uL (1.5-8.5); NEUTROPHILS % 60.9 % (36.0-66.0); PLATELET COUNT, AUTOMATED 310 10^3/uL (150-450); RED BLOOD COUNT 4.38 10^6/uL (4.00-5.40); WHITE BLOOD COUNT 9.3 10^3/uL (4.0-10.0)
--- NOTE | 2019-04-10 22:28 | REPVR ---
PROCEDURE INFORMATION: Exam: US Duplex Right Lower Extremity Veins, Limited Exam date and time: 04/10/2019 10:23 PM Age: 48 years old Clinical history: Pain; Leg, upper and leg, lower; Right; Additional info: Pain/swell TECHNIQUE: Imaging protocol: Real-time Duplex ultrasound of the Right Lower Extremity with 2-D holt scale, color Doppler flow and spectral waveform analysis with image documentation. Limited exam was focused on the right lower extremity veins. COMPARISON: No relevant prior studies available. FINDINGS: Right deep veins: Unremarkable. The common femoral, femoral, proximal profunda femoral and popliteal veins are patent without thrombus. Normal Doppler waveforms. Normal compressibility and/or augmentation response. Right superficial veins: Unremarkable. Saphenofemoral junction is patent without thrombus. Soft tissues: Unremarkable. IMPRESSION: Negative right lower extremity venous duplex exam without evidence of deep venous thrombosis. Electronically signed by: Cirilo Finch On 04/10/2019 22:28:27 PM
[2019-04-10 22:29] LABS: PARTIAL THROMBOPLASTIN TIME 23.9 SECONDS (25.0-38.4); PROTHROMBIN TIME 12.9 SECONDS (11.8-14.0)
[2019-04-10 23:05] LABS: BLOOD UREA NITROGEN 10 MG/DL (7-18); CALCIUM LEVEL 8.8 MG/DL (8.5-10.1); CARBON DIOXIDE LEVEL 28 MEQ/L (21-32); CHLORIDE LEVEL 110 MEQ/L (98-107); CPK CREATINE PHOSPHOKINASE 95 U/L (26-192); CREATININE FOR GFR 0.84 MG/DL (0.55-1.30); GLOMERULAR FILTRATION RATE > 60.0 (>58); GLUCOSE, FASTING 91 MG/DL (70-100); POTASSIUM SERUM 3.8 MEQ/L (3.5-5.1); SODIUM LEVEL 144 MEQ/L (136-145)
[2019-04-10] MEDS ORDERED: NS 500 ML IV ONE (23:30)
[2019-04-10] MEDS ORDERED: KETOROLAC 30 MG/ML VIAL (J1885) IV ONE (23:30)
[2019-04-11 00:42] VITALS: BP 158/88
== END 2019-04-11 00:44 | disposition home or self-care (01) ==
LOC: M ED 20:39
DX: M79.604 Pain in right leg (principal); I10 Essential (primary) hypertension; F32.9 Major depressive disorder, single episode, unspecified; F41.9 Anxiety disorder, unspecified; J45.909 Unspecified asthma, uncomplicated; M79.7 Fibromyalgia; G89.29 Other chronic pain; M54.2 Cervicalgia; M35.00 Sjogren syndrome, unspecified; F17.200 Nicotine dependence, unspecified, uncomplicated; Z79.899 Other long term (current) drug therapy; Z88.6 Allergy status to analgesic agent; Z88.5 Allergy status to narcotic agent
CPT/HCPCS: 80048; 82550; 85025; 85610; 85730; 93971; 96361; 96374; 99284; J1885

== ENCOUNTER → 2019-05-29 | Outpatient (CLI) | payer MEDICARE, MEDICAID ==
[~2019-05-29] MED LIST changes: +FURO40TA2; +POTA1TAB21
--- NOTE | 2019-06-02 09:34 | SLEEPCENT ---
DATE OF STUDY: 05/29/2019 ORDERED BY: EVAN Al Nocturnal polysomnography was performed for evaluation of sleep physiology in this patient with a history of excessive somnolence, morning headaches and irregular breathing in sleep who has comorbidities of hypertension, Sjogren's syndrome and fibromyalgia. 8 hours and 40 minutes of data were reviewed. There were 330.5 minutes of sleep identified. Sleep latency was prolonged at 51.5 minutes. Rapid eye movement (REM) latency was mildly prolonged at 124 minutes. Sleep architecture showed some fragmentation early in the study with a period of wake between 2:30 and 3:45 resulting reduced sleep efficiency of 64.4%; 3 REM cycles were however recorded. The electrocardiogram shows a sinus rhythm with an average heart rate of 58 beats minute. Rate ranged 44-82. Electroencephalogram (EEG) showed alpha intrusion into non-REM stages. No focal events were identified. There were only 15 respiratory events identified of 10 seconds in duration or greater. The events that were seen were exclusive to the supine posture. Snoring was noted over the course of study. Respiratory related arousals occurred 2.7 times per hour. There were no oxygen desaturations and few limb movements were seen. IMPRESSION: Normal nocturnal polysomnography with snoring in the supine posture. RECOMMENDATIONS: Sleep position retraining for avoidance of the supine posture may be sufficient to address the patient's problem.
== END ==
LOC: M SLEEP 19:40
PROVIDERS: ATTEND Nurse Practitioner Family
DX: R40.0 Somnolence (principal)

== ENCOUNTER → 2019-09-11 | Outpatient (CLI) | payer MEDICARE, MEDICAID ==
[~2019-09-11] MED LIST changes: -ROPI2TAB; +ROPI2TAB3
--- NOTE | 2019-09-11 11:51 | REP ---
REASON FOR EXAM: Followup. COMPARISON EXAM: 08/21/2018 Since the last examination the patient has undergone anterior cervical discectomy at C3-4 with placement of fixation screws. The internal fixation plate and screws seen at C5-6 are unchanged. The fixation screws seen at C6-7 are also unchanged. Vertebral body height and alignment is unchanged. There is no significant change in the appearance of the disc spaces or facet joints on this limited two-view exam. IMPRESSION: Status post anterior cervical discectomy with fixation as described above. Electronically Signed by Robin Walters DO 09/11/2019 11:52 A
== END ==
LOC: M RAD 10:28
PROVIDERS: ATTEND Neurological Surgery
DX: M47.812 Spondylosis without myelopathy or radiculopathy, cervical region (principal); M99.81 Other biomechanical lesions of cervical region

== ENCOUNTER → 2019-10-08 | Outpatient (CLI) | payer MEDICARE, MEDICAID ==
--- NOTE | 2019-10-08 08:09 | REP ---
MAXILLOFACIAL CT STUDY WITHOUT CONTRAST: HISTORY: Sj gren's syndrome. FINDINGS: The parotid glands are symmetric and appear normal in size. The deep facial soft tissues are unremarkable. No intraorbital abnormality is seen. The visualized intracranial structures are unremarkable. There is mild mucosal thickening affecting anterior ethmoid air cells on the left and right. Minimal mucosal thickening is visible in the maxillary sinuses bilaterally. Sphenoid sinuses are clear. Mastoid aeration is normal and symmetric. Middle ear cavities are aerated bilaterally. The nasal septum deviates slightly to the left posteriorly. Nasal turbinate soft tissues are symmetric. There is mucosal thickening in the ostium and infundibulum of each ostiomeatal complex. There is mild mucosal thickening in the nasal ethmoid recesses. IMPRESSION: Mild paranasal sinus mucosal changes. Electronically Signed by Blake Kuhn MD 10/08/2019 09:59 A
== END ==
LOC: M RAD 07:03
PROVIDERS: ATTEND Internal Medicine
DX: M35.01 Sjogren syndrome with keratoconjunctivitis (principal); J34.2 Deviated nasal septum; J32.2 Chronic ethmoidal sinusitis

== ENCOUNTER → 2020-03-20 | Outpatient (CLI) | payer MEDICARE, MEDICAID ==
[~2020-03-20] MED LIST changes: -AMLO10TA5; +AMLO1TAB25
[2020-03-20 10:09] LABS: HEMATOCRIT 44.5 % (36.0-47.0); HEMOGLOBIN 14.7 g/dl (12.0-15.5); MEAN CORPUSCULAR HEMOGLOBIN 32.4 pg (27.0-33.0); PLATELET COUNT, AUTOMATED 313 10^3/uL (150-450); RED BLOOD COUNT 4.54 10^6/uL (4.00-5.40); WHITE BLOOD COUNT 9.3 10^3/uL (4.0-10.0)
--- NOTE | 2020-03-20 10:37 | REP ---
INDICATION: ANEMIA. COMPARISON: AP 04/28/2018, two view 10/15/2017. TECHNIQUE: Two views FINDINGS: Lungs are well inflated without pleural effusion, acute infiltrate, atelectasis or mass. The heart, mediastinal and hilar contours are normal. The aorta and airway are intact. Bony thorax shows no compression deformity or focal lesion. Hardware in the lower cervical spine from prior fusion. IMPRESSION: No acute cardiopulmonary disease. Stable chest. <Electronically signed by Zion Frey > 03/20/20 [id number]
[2020-03-20 10:39] LABS: HEMOGLOBIN A1c 5.4 %
[2020-03-20 10:49] LABS: ALT/SGPT 19 U/L (12-78); BLOOD UREA NITROGEN 20 MG/DL (7-18); CALCIUM LEVEL 9.3 MG/DL (8.5-10.1); CARBON DIOXIDE LEVEL 29 MEQ/L (21-32); CHLORIDE LEVEL 106 MEQ/L (98-107); CREATININE FOR GFR 0.98 MG/DL (0.55-1.30); GLOMERULAR FILTRATION RATE > 60.0 (>58); GLUCOSE, FASTING 90 MG/DL (70-100); POTASSIUM SERUM 4.4 MEQ/L (3.5-5.1); SODIUM LEVEL 139 MEQ/L (136-145)
[2020-03-20 10:50] LABS: ALBUMIN 3.7 GM/DL (3.2-5.2); BILIRUBIN,TOTAL 0.3 MG/DL (0.2-1.0); CHOLESTEROL LEVEL 302 MG/DL (<200); CHOLESTEROL RISK RATIO 4.793 (<5); HDL CHOLESTEROL 63 MG/DL (>40); LDL CHOLESTEROL 213 MG/DL (<100); NON-HDL-C 239 MG/DL; TOTAL PROTEIN 7.2 GM/DL (6.4-8.2); TRIGLYCERIDES LEVEL 130 MG/DL (<150)
== END ==
LOC: M LAB 09:47
PROVIDERS: ATTEND Family Medicine
DX: J44.9 Chronic obstructive pulmonary disease, unspecified (principal); R53.83 Other fatigue; E03.9 Hypothyroidism, unspecified; D64.9 Anemia, unspecified

== ENCOUNTER → 2020-04-19 | Outpatient (CLI) | payer MEDICARE, MEDICAID ==
--- NOTE | 2020-04-19 17:14 | REP ---
INDICATION: PAIN IN BOTH HIPS/PT HAS CARPUL APPT 1ST,WILL CALL U AFTER. COMPARISON: None. TECHNIQUE: Two views of each hip. FINDINGS: Right hip two views: Mineralization and joint spaces are normal. There is no fracture or dislocation. There are no calcifications or foreign bodies except for pelvic calcifications, likely phleboliths and possibly surgical clips in the pelvis. Left hip two views: Mineralization and joint spaces are normal. There is no fracture or dislocation. There are no calcifications or foreign bodies. IMPRESSION: Essentially negative right and left hips. There are pelvic calcifications on the right, likely phleboliths. There are probable surgical clips in the pelvis on the right. <Electronically signed by Norman Dowd > 04/19/20 [id number]
== END ==
LOC: M RAD 13:08
PROVIDERS: ATTEND Physician Assistant
DX: M25.551 Pain in right hip (principal); M25.552 Pain in left hip

== ENCOUNTER → 2020-04-19 | Outpatient (CLI) | payer MEDICARE, MEDICAID ==
--- NOTE | 2020-04-19 17:31 | REP ---
INDICATION: ARTHRODESIS STATUS/PT HAS JEANNETTEUL APPT 1ST,WILL CALL AFTER. COMPARISON: Comparison study September 11, 2019.. TECHNIQUE: AP and lateral views. FINDINGS: Patient is status post ventral discectomy and fusion across the C3-4, C5-6, and C6-7 disc levels. Vertebral body heights are preserved and alignment is normal. There is some straightening. Minimal discogenic spurring is seen at C4-5. No significant radiographic change from the September 11, 2019 study. IMPRESSION: Status post ventral discectomy and fusion hardware in the cervical spine at the C3-4 and C5 through C7. <Electronically signed by Piero Kuhn > 04/19/20 [id number]
== END ==
LOC: M RAD 13:14
PROVIDERS: ATTEND Physician Assistant Medical
DX: M99.81 Other biomechanical lesions of cervical region (principal); M47.812 Spondylosis without myelopathy or radiculopathy, cervical region; Z98.1 Arthrodesis status

== ENCOUNTER → 2020-04-19 | Outpatient (CLI) | payer MEDICARE, MEDICAID ==
--- NOTE | 2020-04-19 13:54 | PFTRPT ---
Height: 62.00 Inches Weight: 130.00 Lbs BSA: 1.59 Diagnosis: R05 DATE: 04/19/2020 ORDERING PHYSICIAN: Marilia Mendes NP The study is of excellent technical quality. Pre and post bronchodilator study. Forced vital capacity is normal. FEV1 is in proportion. Obstructive index is therefore normal. Expiratory limit of the flow-volume loop is normal. No significant bronchodilator response is identified. Total lung capacity is normal. Residual volume is in proportion. Diffusing capacity is reduced but is appropriate for alveolar volume. Airway resistance and conductance are normal. Hemoglobin borderline at 12.1. IMPRESSION: Mild to moderate reduction in the absolute diffusing capacity with only borderline correction. Please correlate clinically. MTDD
== END ==
LOC: M CARPUL 13:04
PROVIDERS: ATTEND Nurse Practitioner Family
DX: R05 Cough (principal); M25.551 Pain in right hip; M25.552 Pain in left hip; M99.81 Other biomechanical lesions of cervical region; M47.812 Spondylosis without myelopathy or radiculopathy, cervical region; Z98.1 Arthrodesis status

== ENCOUNTER → 2020-04-21 | Outpatient (CLI) | payer MEDICARE, MEDICAID ==
[~2020-04-21] MED LIST changes: +METHACHOLINE KIT (J7674) INH ONE
--- NOTE | 2020-04-21 13:35 | PFTRPT ---
Height: 62.00 Inches Weight: 130.00 Lbs BSA: 1.59 Diagnosis: R05 DATE: 04/21/2020 ORDERED BY: ELVA Al QUALITY: Study of excellent technical quality. PROCEDURE: Under protocol, methacholine was administered. At a dose of 2.5 mg or 13.875 CDUs, a 24% decline in the FEV1 was noted. PC of 1.34 is significant. Flow rates did return to baseline post bronchodilator administration. IMPRESSION: Positive methacholine challenge study. MTDD
== END ==
LOC: M CARPUL 12:25
PROVIDERS: ATTEND Nurse Practitioner Family
DX: R05 Cough (principal)
CPT/HCPCS: 94070; 95070; J7674

== ENCOUNTER → 2020-05-15 | Outpatient (CLI) | payer SELFPAY ==
[~2020-05-15] MED LIST changes: -METHACHOLINE KIT (J7674) INH ONE
== END ==
LOC: M LABSMTC 08:48
PROVIDERS: ATTEND Pediatrics
DX: Z20.828 Contact with and (suspected) exposure to other viral communicable diseases (principal)

== ENCOUNTER → 2020-05-25 | Outpatient (CLI) | payer MEDICARE, MEDICAID ==
--- NOTE | 2020-05-25 18:56 | REP ---
INDICATION: ABN RESULTS OF PFT. COMPARISON: None. TECHNIQUE: CT chest performed without the use of intravenous contrast. Sagittal and coronal reconstruction images are performed. FINDINGS: Lungs: There are very mild scattered interstitial fibrotic changes diffusely bilaterally. No suspicious nodular opacity is seen. There is no area of consolidation or acute infiltrate. Mediastinum: No gross adenopathy. Tia: No gross adenopathy. Axilla: No gross adenopathy. Pleura: No effusion. Heart: Not enlarged. Thoracic aorta: No aneurysm. Upper abdominal structures: Probable subcentimeter cyst is seen in the left lobe of the liver Visualized osseous structures: Unremarkable. IMPRESSION: Very mild scattered interstitial fibrotic changes diffusely bilaterally. <Electronically signed by Norman Chakraborty > 05/25/20 [id number]
== END ==
LOC: M RAD 13:24
PROVIDERS: ATTEND Nurse Practitioner Family
DX: R94.2 Abnormal results of pulmonary function studies (principal); J84.10 Pulmonary fibrosis, unspecified

== ENCOUNTER → 2020-07-11 | Outpatient (REF) | payer MEDICARE, MEDICAID ==
[~2020-07-11] MED LIST changes: -LISI-538; +LISI20TA33
== END ==
LOC: M LAB REF 15:38
PROVIDERS: ATTEND Nurse Practitioner Family
DX: J45.30 Mild persistent asthma, uncomplicated (principal)

== ENCOUNTER → 2020-07-13 | Outpatient (CLI) | payer MEDICARE, MEDICAID ==
--- NOTE | 2020-07-13 15:59 | REP ---
INDICATION: OTHER SPONDYLOSIS WITH RADICULOPATHY, CERVICAL REGION COMPARISON: None. TECHNIQUE: Lateral, flexion/extension views of the lumbar spine. FINDINGS: Alignment and lordosis maintained. Vertebral bodies are intact. Disc spaces are relatively normal/age-appropriate. No acute fracture/compression injury or subluxation. No obvious spondylolysis or spondylolisthesis.. Mild endplate sclerosis and disc space narrowing at L5-S1 suggested. IMPRESSION: Normal alignment and lordosis. Mild disc space narrowing at L5-S1 <Electronically signed by Pavan Page > 07/13/20 [id number]
== END ==
LOC: EEVIPCON 15:05 → M RAD 15:05
PROVIDERS: ATTEND Neurological Surgery
DX: M47.22 Other spondylosis with radiculopathy, cervical region (principal); M51.37 Other intervertebral disc degeneration, lumbosacral region

== ENCOUNTER → 2020-07-25 | Outpatient (CLI) | payer SELFPAY | LOC: M LABSMTC 13:33 | PROVIDERS: ATTEND Pediatrics | DX: Z20.822 Contact with and (suspected) exposure to COVID-19 (principal) ==

== ENCOUNTER → 2020-08-04 | Outpatient (REF) | payer MEDICARE, MEDICAID | LOC: M LAB REF 16:47 | PROVIDERS: ATTEND Nurse Practitioner Family | DX: J45.41 Moderate persistent asthma with (acute) exacerbation (principal) ==

== ENCOUNTER → 2020-08-09 | Outpatient (REF) | payer MEDICARE, MEDICAID | LOC: M LAB REF 17:17 | PROVIDERS: ATTEND Nurse Practitioner Family | DX: J45.41 Moderate persistent asthma with (acute) exacerbation (principal) ==

== ENCOUNTER → 2020-10-28 | Outpatient (CLI) | payer SELFPAY | LOC: M LABSMTC 10:00 | PROVIDERS: ATTEND Pediatrics | DX: Z20.822 Contact with and (suspected) exposure to COVID-19 (principal) ==

== ENCOUNTER → 2020-11-26 | Outpatient (CLI) | payer MEDICARE, MEDICAID ==
[2020-11-26 10:27] LABS: HEMATOCRIT 39.8 % (36.0-47.0); HEMOGLOBIN 13.3 g/dl (12.0-15.5); MEAN CORPUSCULAR HEMOGLOBIN 32.6 pg (27.0-33.0); MEAN CORPUSCULAR HGB CONC 33.4 g/dl (32.0-36.5); MEAN CORPUSCULAR VOLUME 97.5 fl (80.0-96.0); PLATELET COUNT, AUTOMATED 360 10^3/uL (150-450); RED BLOOD COUNT 4.08 10^6/uL (4.00-5.40); WHITE BLOOD COUNT 7.3 10^3/uL (4.0-10.0)
[2020-11-26 11:04] LABS: ALBUMIN 3.6 GM/DL (3.2-5.2); ALT/SGPT 27 U/L (12-78); BILIRUBIN,TOTAL 0.3 MG/DL (0.2-1.0); BLOOD UREA NITROGEN 17 MG/DL (7-18); CALCIUM LEVEL 8.9 MG/DL (8.5-10.1); CARBON DIOXIDE LEVEL 32 MEQ/L (21-32); CHLORIDE LEVEL 108 MEQ/L (98-107); CREATININE FOR GFR 0.77 MG/DL (0.55-1.30); GLOMERULAR FILTRATION RATE > 60.0 (>58); GLUCOSE, FASTING 84 MG/DL (70-100); POTASSIUM SERUM 4.2 MEQ/L (3.5-5.1); SODIUM LEVEL 141 MEQ/L (136-145)
[2020-11-28 10:00] LABS: VITAMIN B12 LEVEL 465 PG/ML (247-911)
[2020-11-28 10:02] LABS: FOLATE 2.9 NG/ML (>5.4)
== END ==
LOC: M LAB 09:42
PROVIDERS: ATTEND Physician Assistant Medical
DX: E03.9 Hypothyroidism, unspecified (principal)

== ENCOUNTER → 2021-02-27 | Outpatient (CLI) | payer MEDICARE, MEDICAID ==
--- NOTE | 2021-02-27 09:41 | REP ---
INDICATION: COPD COMPARISON: 03/20/2020 TECHNIQUE: PA and lateral. FINDINGS: The mediastinum and cardiac silhouette are normal. The lung arita are clear and without acute consolidation, effusion, or pneumothorax. The skeletal structures are intact and normal. IMPRESSION: No acute cardiopulmonary process. <Electronically signed by Pavan Page > 02/27/21 [id number]
== END ==
LOC: M RAD 09:06
PROVIDERS: ATTEND Family Medicine
DX: J44.9 Chronic obstructive pulmonary disease, unspecified (principal)

== ENCOUNTER → 2021-03-13 | Outpatient (CLI) | payer MEDICARE, MEDICAID ==
[~2021-03-13] MED LIST changes: -CYMB60CA3 PO; +CYMB60CA4 PO
--- NOTE | 2021-03-13 13:34 | REP ---
INDICATION: DEVIATED NASAL SEPTUM. COMPARISON: 02/27/2021 latest prior TECHNIQUE: PA and lateral FINDINGS: The superior mediastinal structures are midline. The cardiac silhouette is unremarkable in size, shape, and position. The diaphragmatic surfaces of the lungs are regular, and the costophrenic angles are clear. The pulmonary arita are clear. The imaged osseous structures are intact. IMPRESSION: There is no acute cardiopulmonary disease. <Electronically signed by Robin Walters > 03/13/21 [id number]
--- NOTE | 2021-03-14 21:18 | ECGEPIP ---
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
== END ==
LOC: M RAD 13:03
PROVIDERS: ATTEND Specialist
DX: J34.2 Deviated nasal septum (principal)

== ENCOUNTER → 2021-03-17 | Outpatient (CLI) | payer MEDICARE, MEDICAID | LOC: M LABSMTC 11:00 | PROVIDERS: ATTEND Specialist | DX: Z11.52 Encounter for screening for COVID-19 (principal) ==

== ENCOUNTER → 2021-11-28 | Outpatient (CLI) | payer MEDICARE ==
[~2021-11-28] MED LIST changes: -SUMA6INJ16; +SUMA6INJ25
== END ==
LOC: M WHC 07:22
PROVIDERS: ATTEND Family Medicine
DX: N63.22 Unspecified lump in the left breast, upper inner quadrant (principal)
CPT/HCPCS: 76642; 77066; G0279

== ENCOUNTER → 2022-01-08 | Outpatient (CLI) | payer MEDICARE | LOC: M PLAIMG 13:58 | PROVIDERS: ATTEND Neurological Surgery | DX: M43.06 Spondylolysis, lumbar region (principal); M51.26 Other intervertebral disc displacement, lumbar region ==

== ENCOUNTER → 2022-03-10 | Outpatient (CLI) | payer MEDICARE ==
[2022-03-10 11:15] LABS: BASO # 0.1 10^3/uL (0.0-0.2); BASO % 0.4 % (0.0-1.0); EOS # 0.1 10^3/uL (0.0-0.5); EOS % 0.7 % (0.0-3.0); HEMATOCRIT 42.8 % (36.0-47.0); LYMPH # 2.7 10^3/uL (1.5-5.0); LYMPH % 20.4 % (24.0-44.0); MEAN CORPUSCULAR HEMOGLOBIN 31.3 pg (27.0-33.0); MEAN CORPUSCULAR HGB CONC 32.7 g/dl (32.0-36.5); MEAN CORPUSCULAR VOLUME 95.5 fl (80.0-96.0); MONO # 0.7 10^3/uL (0.0-0.8); MONO % 5.3 % (2.0-8.0); NEUTROPHILS # 9.8 10^3/uL (1.5-8.5); NEUTROPHILS % 72.9 % (36.0-66.0); PLATELET COUNT, AUTOMATED 384 10^3/uL (150-450); RED BLOOD COUNT 4.48 10^6/uL (4.00-5.40); WHITE BLOOD COUNT 13.4 10^3/uL (4.0-10.0)
[2022-03-20 04:07] LABS: D001-IgE D pteronyssinus <0.10 kU/L (Class 0); E001-IgE Cat Epith/Dander < 0.10 kU/L (Class 0); E005-IgE Dog Dander < 0.10 kU/L (Class 0); G002-IgE Bermuda Grass < 0.10 kU/L (Class 0); M001-IgE Penicillium chrysogen < 0.10 kU/L (Class 0); M002 IgE Cladosporium herbaru < 0.10 kU/L (Class 0); M003 IgE Aspergillus fumigatu < 0.10 kU/L (Class 0); M006-IgE Alternaria alternata < 0.10 kU/L (Class 0); T001-IgE Maple/Box Elder < 0.10 kU/L (Class 0); T003-IgE Common Silver Birch < 0.10 kU/L (Class 0); T006-IgE Cedar, Mountain < 0.10 kU/L (Class 0); T007-IgE Oak, White < 0.10 kU/L (Class 0); T008-IgE Elm, American < 0.10 kU/L (Class 0); T015-IgE Ash, White < 0.10 kU/L (Class 0); T070-IgE White Mulberry < 0.10 kU/L (Class 0); W001-IgE Ragweed, Short < 0.10 kU/L (Class 0); W018-IgE Sheep Sorrel < 0.10 kU/L (Class 0)
== END ==
LOC: M LAB 10:06
PROVIDERS: ATTEND Nurse Practitioner Family
DX: J44.9 Chronic obstructive pulmonary disease, unspecified (principal); Z87.891 Personal history of nicotine dependence; T78.49XA Other allergy, initial encounter; E78.00 Pure hypercholesterolemia, unspecified

== ENCOUNTER → 2022-03-10 | Outpatient (CLI) | payer MEDICARE ==
[2022-03-10 12:34] LABS: CHOLESTEROL RISK RATIO 2.692 (<5); THYROID STIMULATING HORMONE 2.15 uIU/ML (0.358-3.740)
== END ==
LOC: M LAB 10:11
PROVIDERS: ATTEND Internal Medicine Cardiovascular Disease
DX: E78.00 Pure hypercholesterolemia, unspecified (principal)

== ENCOUNTER → 2022-04-25 | Outpatient (CLI) | payer MEDICARE, MEDICAID | LOC: M PAIN 13:00 | PROVIDERS: ATTEND Anesthesiology | DX: M51.16 Intervertebral disc disorders with radiculopathy, lumbar region (principal); M54.2 Cervicalgia; F41.9 Anxiety disorder, unspecified; F32.A Depression, unspecified; R53.83 Other fatigue; G25.81 Restless legs syndrome; E55.9 Vitamin D deficiency, unspecified; E78.5 Hyperlipidemia, unspecified; R03.0 Elevated blood-pressure reading, without diagnosis of hypertension; M35.00 Sjogren syndrome, unspecified; G43.709 Chronic migraine without aura, not intractable, without status migrainosus; Z87.891 Personal history of nicotine dependence; Z79.899 Other long term (current) drug therapy; Z88.5 Allergy status to narcotic agent ==

== ENCOUNTER → 2022-06-15 | Outpatient (CLI) | payer MEDICARE, MEDICAID | LOC: M RAD 07:30 | PROVIDERS: ATTEND Nurse Practitioner Family | DX: Z12.2 Encounter for screening for malignant neoplasm of respiratory organs (principal); Z87.891 Personal history of nicotine dependence ==

== ENCOUNTER → 2022-06-20 | Outpatient (CLI) | payer MEDICARE, MEDICAID ==
[2022-06-20 07:46] LABS: BASO # 0.1 10^3/uL (0.0-0.2); BASO % 0.8 % (0.0-1.0); EOS # 0.1 10^3/uL (0.0-0.5); EOS % 1.8 % (0.0-3.0); HEMATOCRIT 39.1 % (36.0-47.0); HEMOGLOBIN 12.8 g/dl (12.0-15.5); LYMPH % 37.4 % (24.0-44.0); MEAN CORPUSCULAR HEMOGLOBIN 31.6 pg (27.0-33.0); MEAN CORPUSCULAR HGB CONC 32.7 g/dl (32.0-36.5); MEAN CORPUSCULAR VOLUME 96.5 fl (80.0-96.0); MONO # 0.5 10^3/uL (0.0-0.8); NEUTROPHILS # 4.2 10^3/uL (1.5-8.5); NEUTROPHILS % 53.6 % (36.0-66.0); PLATELET COUNT, AUTOMATED 328 10^3/uL (150-450); RED BLOOD COUNT 4.05 10^6/uL (4.00-5.40); WHITE BLOOD COUNT 7.9 10^3/uL (4.0-10.0)
== END ==
LOC: M LAB 07:22
PROVIDERS: ATTEND Nurse Practitioner Family
DX: J45.40 Moderate persistent asthma, uncomplicated (principal)

== ENCOUNTER → 2022-11-05 | Outpatient (CLI) | payer MEDICARE, MEDICAID ==
[~2022-11-05] MED LIST changes: +SIMV-254 PO; -ZOCO40TA PO
== END ==
LOC: M PAIN 16:30 → M TMPAIN 16:30
PROVIDERS: ATTEND Anesthesiology
DX: M51.16 Intervertebral disc disorders with radiculopathy, lumbar region (principal); G89.29 Other chronic pain; G25.81 Restless legs syndrome; I10 Essential (primary) hypertension; G43.909 Migraine, unspecified, not intractable, without status migrainosus; Z86.59 Personal history of other mental and behavioral disorders; Z87.891 Personal history of nicotine dependence; Z88.5 Allergy status to narcotic agent; Z79.899 Other long term (current) drug therapy

== ENCOUNTER → 2023-03-22 | Outpatient (CLI) | payer MEDICARE, MEDICAID ==
[~2023-03-22] MED LIST changes: +ALBU2.5V10 NEB; +ALBU8.5H INH; -AMLO1TAB25; +AMLO1TAB25 PO; +ASPI81CH33 PO; +BUDE0.5S6 NEB; +DIVA500T94 PO; +FREM225A; -GABA600T4; +GABA600T4 PO; +OMEP40CA5 PO; -ROPI2TAB3; +ROPI2TAB46; +ROSU40TA4 PO; +SALA1TAB PO; +SERT50TA29 PO; -TIZA2TA; +TIZA2TA PO
== END ==
LOC: M PAIN 09:30
PROVIDERS: ATTEND Anesthesiology
DX: M51.16 Intervertebral disc disorders with radiculopathy, lumbar region (principal); G89.29 Other chronic pain; M54.2 Cervicalgia; F41.9 Anxiety disorder, unspecified; F32.A Depression, unspecified; R53.83 Other fatigue; G25.81 Restless legs syndrome; E55.9 Vitamin D deficiency, unspecified; E78.5 Hyperlipidemia, unspecified; M35.00 Sjogren syndrome, unspecified; G43.709 Chronic migraine without aura, not intractable, without status migrainosus; Z87.891 Personal history of nicotine dependence; Z79.899 Other long term (current) drug therapy; Z88.5 Allergy status to narcotic agent

== ENCOUNTER → 2023-03-28 | Outpatient (CLI) | payer MEDICARE, MEDICAID | LOC: M WUC 10:13 | PROVIDERS: ATTEND Nurse Practitioner Family | DX: M79.662 Pain in left lower leg (principal); M25.572 Pain in left ankle and joints of left foot ==

== ENCOUNTER 2023-04-03 11:49 | Day surgery (SDC) | payer MEDICARE, MEDICAID ==
[~2023-04-03] VITALS: Ht 157.5 cm; Wt 58.6 kg
[~2023-04-03 11:49] MED LIST changes: +NS 1,000 ML IV ONE
[2023-04-03] MEDS ORDERED: propofoL 200 MG/20 ML VIAL As Ordered ONE ×2 (13:29→13:30)
[2023-04-03] MEDS ORDERED: LIDOCAINE 2% 100MG/5ML SDV (FOR ANES.) As Ordered ONE (13:30)
[2023-04-03] MEDS ORDERED: fentaNYL 100 MCG/2 ML INJECTION As Ordered ONE (13:31)
[2023-04-03] MEDS ORDERED: ALBUTEROL 6.7GM INHALER **FOR ANES. CART/OMNICELL ONLY As Ordered ONE (14:52)
[2023-04-03 15:22] VITALS: BP 108/71; TEMP 96.3; O2SAT 95
== END 2023-04-03 15:26 | disposition home or self-care (01) ==
LOC: M OPP 11:49
PROVIDERS: ATTEND Surgery
DX: Z12.11 Encounter for screening for malignant neoplasm of colon (principal); D12.7 Benign neoplasm of rectosigmoid junction; D12.4 Benign neoplasm of descending colon; D12.2 Benign neoplasm of ascending colon; K31.89 Other diseases of stomach and duodenum; I10 Essential (primary) hypertension; J44.9 Chronic obstructive pulmonary disease, unspecified; Z79.899 Other long term (current) drug therapy; E78.00 Pure hypercholesterolemia, unspecified; K21.9 Gastro-esophageal reflux disease without esophagitis; Z88.8 Allergy status to other drugs, medicaments and biological substances; Z88.6 Allergy status to analgesic agent; Z88.5 Allergy status to narcotic agent
CPT/HCPCS: 43239; 45385; 88305; J3010

== ENCOUNTER → 2023-04-12 | Outpatient (CLI) | payer MEDICARE, MEDICAID ==
[~2023-04-12] MED LIST changes: -NS 1,000 ML IV ONE
== END ==
LOC: M PAIN 09:45
PROVIDERS: ATTEND Anesthesiology
DX: M51.16 Intervertebral disc disorders with radiculopathy, lumbar region (principal); G89.29 Other chronic pain; F41.9 Anxiety disorder, unspecified; F32.A Depression, unspecified; R53.83 Other fatigue; G25.81 Restless legs syndrome; E55.9 Vitamin D deficiency, unspecified; E78.5 Hyperlipidemia, unspecified; G43.709 Chronic migraine without aura, not intractable, without status migrainosus; M35.00 Sjogren syndrome, unspecified; Z87.891 Personal history of nicotine dependence; Z79.899 Other long term (current) drug therapy

== ENCOUNTER → 2023-05-10 | Outpatient (CLI) | payer MEDICARE, MEDICAID | LOC: M WHC 12:24 | PROVIDERS: ATTEND Nurse Practitioner Family | DX: Z12.31 Encounter for screening mammogram for malignant neoplasm of breast (principal) ==

== ENCOUNTER → 2023-07-09 | Outpatient (CLI) | payer MEDICARE, MEDICAID | LOC: M RAD 07:57 | PROVIDERS: ATTEND Nurse Practitioner Family | DX: Z87.891 Personal history of nicotine dependence (principal) ==

== ENCOUNTER → 2023-07-17 | Outpatient (CLI) | payer MEDICARE, MEDICAID | LOC: M PAIN 15:00 | PROVIDERS: ATTEND Anesthesiology | DX: M51.16 Intervertebral disc disorders with radiculopathy, lumbar region (principal); G89.29 Other chronic pain; F41.9 Anxiety disorder, unspecified; M54.2 Cervicalgia; F32.A Depression, unspecified; R53.83 Other fatigue; G25.81 Restless legs syndrome; E55.9 Vitamin D deficiency, unspecified; E78.5 Hyperlipidemia, unspecified; G43.709 Chronic migraine without aura, not intractable, without status migrainosus; M35.00 Sjogren syndrome, unspecified; Z87.891 Personal history of nicotine dependence; Z79.899 Other long term (current) drug therapy; Z88.5 Allergy status to narcotic agent ==

== ENCOUNTER → 2023-08-07 | Outpatient (REF) | payer MEDICARE, MEDICAID | LOC: M LAB REF 10:08 | PROVIDERS: ATTEND Nurse Practitioner Family | DX: J45.41 Moderate persistent asthma with (acute) exacerbation (principal) ==

== ENCOUNTER → 2023-09-19 | Outpatient (REF) | payer MEDICARE, MEDICAID ==
[~2023-09-19] MED LIST changes: -ROSU40TA4 PO; +ROSU40TA63 PO; -SUMA6INJ25; +SUMA6PEN3
[2023-09-19 19:04] LABS: URIC ACID 2.8 MG/DL (3.1-7.8)
[2023-09-19 19:09] LABS: BLOOD UREA NITROGEN 15 MG/DL (9-23); CALCIUM LEVEL 9.3 MG/DL (8.5-10.1); CARBON DIOXIDE LEVEL 30 MMOL/L (20-31); CHLORIDE LEVEL 107 MMOL/L (98-107); CREATININE FOR GFR 0.65 MG/DL (0.55-1.30); GLOMERULAR FILTRATION RATE > 60.0 (>51); GLUCOSE, FASTING 82 MG/DL (60-100); POTASSIUM SERUM 4.1 MMOL/L (3.5-5.1); RHEUMATOID FACTOR QUANT 7.8 IU/ML (<14); SODIUM LEVEL 140 MMOL/L (136-145)
[2023-09-19 19:10] LABS: THYROID STIMULATING HORMONE 3.009 uIU/ML (0.55-4.78)
[2023-09-19 19:12] LABS: THYROID PEROXIDASE ANTIBODY 37 U/ML (<60.0)
[2023-09-21 13:07] LABS: ANTINUCLEAR ANTIBODIES DIRECT Negative (Negative)
== END ==
LOC: M LAB REF 16:50
PROVIDERS: ATTEND Nurse Practitioner Family
DX: M25.50 Pain in unspecified joint (principal); Z86.39 Personal history of other endocrine, nutritional and metabolic disease

== ENCOUNTER → 2023-10-10 | Outpatient (CLI) | payer MEDICARE, MEDICAID ==
[~2023-10-10] MED LIST changes: +ISOVUE-M 300 61% 15ML VIAL As Ordered ONE; +LIDOCAINE 1% SDV 30ML VIAL As Ordered ONE; +NORCO, ANEXSIA 5/325MG TABLET (HYDROcodone/ACETAMINOPHEN) As Ordered ONE; +ONDANSETRON 4MG ORAL DISINTEGRATING TAB As Ordered ONE; +diazePAM 5MG TABLET As Ordered ONE; +methylPREDNISolone SUSP 40MG/ML 1ML VIAL (DEPO MEDROL) As Ordered ONE
== END ==
LOC: M PAIN 08:30
PROVIDERS: ATTEND Anesthesiology
DX: M51.16 Intervertebral disc disorders with radiculopathy, lumbar region (principal); G89.29 Other chronic pain; M54.2 Cervicalgia; F41.9 Anxiety disorder, unspecified; F32.A Depression, unspecified; R53.83 Other fatigue; G25.81 Restless legs syndrome; E55.9 Vitamin D deficiency, unspecified; M35.00 Sjogren syndrome, unspecified; G43.709 Chronic migraine without aura, not intractable, without status migrainosus; Z87.891 Personal history of nicotine dependence; Z79.82 Long term (current) use of aspirin; Z79.899 Other long term (current) drug therapy; Z88.5 Allergy status to narcotic agent; Z88.8 Allergy status to other drugs, medicaments and biological substances
CPT/HCPCS: 62323; J1010; Q9967

== ENCOUNTER → 2023-11-09 | Outpatient (CLI) | payer MEDICARE, MEDICAID ==
[~2023-11-09] MED LIST changes: -ISOVUE-M 300 61% 15ML VIAL As Ordered ONE; -LIDOCAINE 1% SDV 30ML VIAL As Ordered ONE; -NORCO, ANEXSIA 5/325MG TABLET (HYDROcodone/ACETAMINOPHEN) As Ordered ONE; -ONDANSETRON 4MG ORAL DISINTEGRATING TAB As Ordered ONE; -diazePAM 5MG TABLET As Ordered ONE; -methylPREDNISolone SUSP 40MG/ML 1ML VIAL (DEPO MEDROL) As Ordered ONE
[2023-11-09 10:07] LABS: CHOLESTEROL RISK RATIO 3.23 (<5); HDL CHOLESTEROL 52.3 MG/DL (>40); LDL CHOLESTEROL 94.9 MG/DL (<100); NON-HDL-C 116.7 MG/DL
== END ==
LOC: M LAB 08:51
PROVIDERS: ATTEND Internal Medicine Cardiovascular Disease
DX: E78.01 Familial hypercholesterolemia (principal)

== ENCOUNTER → 2023-12-17 | Outpatient (CLI) | payer MEDICARE, MEDICAID ==
[~2023-12-17] MED LIST changes: +GABA-1490 PO; -GABA600T4 PO; -ROSU40TA63 PO; +ROSU40TA81 PO
== END ==
LOC: M PAIN 14:00
PROVIDERS: ATTEND Nurse Practitioner Family
DX: G89.29 Other chronic pain (principal); M51.16 Intervertebral disc disorders with radiculopathy, lumbar region; M46.1 Sacroiliitis, not elsewhere classified; M54.2 Cervicalgia; F41.9 Anxiety disorder, unspecified; F32.A Depression, unspecified; R53.83 Other fatigue; G25.81 Restless legs syndrome; E55.9 Vitamin D deficiency, unspecified; G43.709 Chronic migraine without aura, not intractable, without status migrainosus; M35.00 Sjogren syndrome, unspecified; Z87.891 Personal history of nicotine dependence; Z79.82 Long term (current) use of aspirin; Z79.899 Other long term (current) drug therapy; Z88.5 Allergy status to narcotic agent; Z88.8 Allergy status to other drugs, medicaments and biological substances

== ENCOUNTER → 2024-01-16 | Outpatient (CLI) | payer MEDICARE, MEDICAID | LOC: M PLARAD 12:32 | PROVIDERS: ATTEND Nurse Practitioner Family | DX: M51.16 Intervertebral disc disorders with radiculopathy, lumbar region (principal); M46.1 Sacroiliitis, not elsewhere classified ==

== ENCOUNTER → 2024-01-17 | Outpatient (REF) | payer MEDICARE, MEDICAID ==
[2024-01-23 13:27] LABS: HLA-B27 Negative (Negative)
== END ==
LOC: M LAB REF 12:32
PROVIDERS: ATTEND Nurse Practitioner Family
DX: M25.50 Pain in unspecified joint (principal); Z11.9 Encounter for screening for infectious and parasitic diseases, unspecified

== ENCOUNTER → 2024-04-02 | Outpatient (CLI) | payer MEDICARE, MEDICAID | LOC: M PAIN 17:30 | PROVIDERS: ATTEND Nurse Practitioner Family | DX: M51.16 Intervertebral disc disorders with radiculopathy, lumbar region (principal); M46.1 Sacroiliitis, not elsewhere classified; M47.816 Spondylosis without myelopathy or radiculopathy, lumbar region; G89.29 Other chronic pain; M54.2 Cervicalgia; F41.9 Anxiety disorder, unspecified; F32.A Depression, unspecified; R53.83 Other fatigue; G25.81 Restless legs syndrome; E55.9 Vitamin D deficiency, unspecified; E78.5 Hyperlipidemia, unspecified; M35.00 Sjogren syndrome, unspecified; G43.709 Chronic migraine without aura, not intractable, without status migrainosus; Z79.82 Long term (current) use of aspirin; Z87.891 Personal history of nicotine dependence; Z79.899 Other long term (current) drug therapy; Z88.5 Allergy status to narcotic agent; Z88.8 Allergy status to other drugs, medicaments and biological substances ==

== ENCOUNTER 2024-05-16 06:51 | Emergency (ER) | payer MEDICARE, MEDICAID ==
[~2024-05-16] VITALS: Ht 157.5 cm; Wt 67.0 kg
[2024-05-16 06:55] VITALS: TEMP 96.8
[2024-05-16] MEDS: KETOROLAC 60MG 2ML VIAL IM ONE (08:11)
[2024-05-16] MEDS: methocarbamoL 500 MG TAB PO ONE (08:11)
[2024-05-16] MEDS ORDERED: METH-1164 PO (09:23)
[2024-05-16 09:32] VITALS: BP 119/82; O2SAT 99
== END 2024-05-16 09:35 | disposition home or self-care (01) ==
LOC: M ED 06:51
DX: M25.511 Pain in right shoulder (principal); I10 Essential (primary) hypertension; F17.210 Nicotine dependence, cigarettes, uncomplicated; Z88.5 Allergy status to narcotic agent; Z88.8 Allergy status to other drugs, medicaments and biological substances; Z79.51 Long term (current) use of inhaled steroids; Z79.1 Long term (current) use of non-steroidal anti-inflammatories (NSAID); Z79.899 Other long term (current) drug therapy
CPT/HCPCS: 73030; 96372; 99283; J1885

== ENCOUNTER → 2024-06-11 | Outpatient (CLI) | payer MEDICARE, MEDICAID ==
[~2024-06-11] MED LIST changes: +METH-1164 PO
== END ==
LOC: M SLEEP HO 11:26
PROVIDERS: ATTEND Nurse Practitioner Family
DX: R06.83 Snoring (principal); R05.9 Cough, unspecified
CPT/HCPCS: 71046; G0399

== ENCOUNTER → 2024-06-17 | Outpatient (CLI) | payer MEDICARE, MEDICAID | LOC: M PAIN 14:45 | PROVIDERS: ATTEND Anesthesiology | DX: M51.16 Intervertebral disc disorders with radiculopathy, lumbar region (principal); M48.061 Spinal stenosis, lumbar region without neurogenic claudication; G89.29 Other chronic pain; E55.9 Vitamin D deficiency, unspecified; E78.5 Hyperlipidemia, unspecified; Z87.891 Personal history of nicotine dependence; Z79.82 Long term (current) use of aspirin; Z79.899 Other long term (current) drug therapy; Z88.5 Allergy status to narcotic agent; Z88.8 Allergy status to other drugs, medicaments and biological substances ==

== ENCOUNTER → 2024-07-27 | Outpatient (REF) | payer MEDICARE, MEDICAID ==
[~2024-07-27] MED LIST changes: -SUMA6PEN3; +SUMA6PEN5
== END ==
LOC: M LAB REF 12:11
PROVIDERS: ATTEND Nurse Practitioner Family
DX: J06.9 Acute upper respiratory infection, unspecified (principal)

== ENCOUNTER → 2024-07-29 | Outpatient (CLI) | payer MEDICARE, MEDICAID | LOC: M RAD 12:13 | PROVIDERS: ATTEND Physician Assistant | DX: Z87.891 Personal history of nicotine dependence (principal) ==

== ENCOUNTER → 2024-11-26 | Outpatient (CLI) | payer MEDICARE, MEDICAID ==
[~2024-11-26] MED LIST changes: +DIVA-41 PO; -DIVA500T94 PO
[2024-11-26 14:44] LABS: CREATININE FOR GFR 0.72 MG/DL (0.55-1.30); GLOMERULAR FILTRATION RATE > 90.0 (>51)
== END ==
LOC: M LAB 13:55
PROVIDERS: ATTEND Psychiatry & Neurology Neurology
DX: I10 Essential (primary) hypertension (principal)

== ENCOUNTER → 2024-12-23 | Outpatient (CLI) | payer MEDICARE, MEDICAID ==
[2024-12-23 16:04] LABS: BASO # 0.1 10^3/uL (0.0-0.2); BASO % 0.8 % (0.0-1.0); EOS # 0.1 10^3/uL (0.0-0.5); EOS % 1.5 % (0.0-3.0); LYMPH # 3.4 10^3/uL (1.5-5.0); LYMPH % 39.2 % (24.0-44.0); MONO # 0.5 10^3/uL (0.0-0.8); MONO % 5.4 % (2.0-8.0); NEUTROPHILS # 4.6 10^3/uL (1.5-8.5); NEUTROPHILS % 52.9 % (36.0-66.0); PLATELET COUNT, AUTOMATED 284 10^3/uL (150-450)
[2024-12-23 16:23] LABS: ALT/SGPT 21 U/L (7.0-40); AST/SGOT 22 U/L (<34); CALCIUM LEVEL 9.4 MG/DL (8.5-10.1); CARBON DIOXIDE LEVEL 29 MMOL/L (20-31); CHLORIDE LEVEL 103 MMOL/L (98-107); CHOLESTEROL LEVEL 211 MG/DL (<200); CHOLESTEROL RISK RATIO 3.47 (<5); CREATININE FOR GFR 0.73 MG/DL (0.55-1.30); GLOMERULAR FILTRATION RATE > 90.0 (>51); LDL CHOLESTEROL 106.5 MG/DL (<100); NON-HDL-C 150.3 MG/DL; POTASSIUM SERUM 4.1 MMOL/L (3.5-5.1); SODIUM LEVEL 140 MMOL/L (136-145); TRIGLYCERIDES LEVEL 219 MG/DL (<150)
== END ==
LOC: M LAB 15:27
PROVIDERS: ATTEND Internal Medicine Cardiovascular Disease
DX: E78.2 Mixed hyperlipidemia (principal); I10 Essential (primary) hypertension

== ENCOUNTER → 2025-02-18 | Outpatient (CLI) | payer MEDICARE, MEDICAID ==
[~2025-02-18] MED LIST changes: -EZET10TA21 PO; +EZET10TA57 PO; -IBUP-1022; +IBUP600T42
== END ==
LOC: M RAD 08:28
PROVIDERS: ATTEND Otolaryngology
DX: J32.8 Other chronic sinusitis (principal)

== ENCOUNTER 2025-04-15 10:50 | Day surgery (SDC) | payer MEDICARE, MEDICAID ==
[~2025-04-15] VITALS: Ht 157.5 cm; Wt 62.0 kg
[~2025-04-15 10:50] MED LIST changes: +AZEL1SPR3; +CARB-19 PO; +DULO1CAP4 PO; +FLUT1BLS5; +FLUTISP; +NITR0.4S14 PO; +PRAM0.5T4 PO
[2025-04-15] MEDS: LR 1,000 ML IV SCH (11:15)
[2025-04-15] MEDS ORDERED: GABAPENTIN 300 MG CAP PO ONE (11:15)
[2025-04-15] MEDS ORDERED: ACETAMINOPHEN 1000MG/100ML IV BAG As Ordered ONE (11:27)
[2025-04-15] MEDS ORDERED: dexAMETHasone 4 MG/ML 1 ML VIAL As Ordered ONE (11:27)
[2025-04-15] MEDS ORDERED: SUGAMMADEX SODIUM 500 MG/5 ML VIAL As Ordered ONE (11:27)
[2025-04-15] MEDS ORDERED: ONDANSETRON 4MG/2ML VIAL As Ordered ONE (11:27)
[2025-04-15] MEDS ORDERED: REMIFENTANIL 1MG VIAL As Ordered ONE (11:28)
[2025-04-15] MEDS ORDERED: LIDOCAINE 2% 100 MG/5 ML SDV (FOR ANES.) As Ordered ONE (11:28)
[2025-04-15] MEDS ORDERED: ROCURONIUM BROMIDE 50MG/5ML VIAL As Ordered ONE (11:28)
[2025-04-15] MEDS ORDERED: MIDAZOLAM INJ 2 MG/2 ML VIAL As Ordered ONE (11:29)
[2025-04-15] MEDS: COCAINE 4% 4 ML NASAL SOLUTION BTL As Ordered ONE (13:24)
[2025-04-15] MEDS: LIDOCAINE W/EPINEPHrine 1% 20 ML VIAL As Ordered ONE (13:24)
[2025-04-15] MEDS: OXYMETAZOLINE 0.05% NASAL SPRAY As Ordered ONE (13:24)
[2025-04-15] MEDS ORDERED: HYDROMORPHONE HCL 0.5 MG/0.5 ML SYRINGE IV PRN (14:05)
[2025-04-15] MEDS ORDERED: MORPHINE 2 MG/ML 1 ML VIAL IV PRN (14:05)
[2025-04-15] MEDS ORDERED: ONDANSETRON 4MG/2ML VIAL IV PRN (14:05)
[2025-04-15 16:30] VITALS: BP 144/79; TEMP 97.8; O2SAT 99
== END 2025-04-15 17:15 | disposition home or self-care (01) ==
LOC: M SDC 10:50
PROVIDERS: ATTEND Otolaryngology
DX: J32.8 Other chronic sinusitis (principal); I10 Essential (primary) hypertension; E78.00 Pure hypercholesterolemia, unspecified; J45.909 Unspecified asthma, uncomplicated; M35.00 Sjogren syndrome, unspecified; K21.9 Gastro-esophageal reflux disease without esophagitis; M79.7 Fibromyalgia; Z79.899 Other long term (current) drug therapy; Z79.82 Long term (current) use of aspirin; F41.9 Anxiety disorder, unspecified; F32.A Depression, unspecified; Z90.710 Acquired absence of both cervix and uterus; Z88.5 Allergy status to narcotic agent; Z88.6 Allergy status to analgesic agent
CPT/HCPCS: 31257; 31267; 31276; 61782; 88305; A6024; C9143; J0131; J1100; J2250; J2405; J2765; J3010